=== PATIENT | male | born 1985 | race African-American/Black ===

== ENCOUNTER 2023-08-03 09:40 | Emergency (ER) | payer OTHER ==
[~2023-08-03] VITALS: Ht 180.3 cm; Wt 104.3 kg
[2023-08-03] MEDS ORDERED: IPRATROPIUM NEB FS 0.5 MG/2.5 ML AMPUL.NEB NEB ONE (10:00)
[2023-08-03] MEDS ORDERED: ALBUTEROL FS 2.5 MG/3 ML VIAL.NEB CONTNEB ONE (10:00)
[2023-08-03] MEDS ORDERED: methylPREDNISolone SOD SUCC 125 MG/2ML VIAL IV ONE (10:00)
[2023-08-03] MEDS ORDERED: EPINEPHRINE (1:1000) 1 MG/ML AMPUL SUBCUT ONE (10:00)
[2023-08-03] MEDS ORDERED: ALBUTEROL FS 2.5 MG/3 ML VIAL.NEB ONE (10:09)
[2023-08-03] MEDS ORDERED: EPINEPHRINE (1:1000) 1 MG/ML AMPUL ONE (10:09)
[2023-08-03] MEDS ORDERED: IPRATROPIUM NEB FS 0.5 MG/2.5 ML AMPUL.NEB ONE (10:09)
[2023-08-03] MEDS ORDERED: methylPREDNISolone SOD SUCC 125 MG/2ML VIAL ONE (10:09)
[2023-08-03 10:13] VITALS: O2SAT 96
[2023-08-03 10:34] VITALS: O2SAT 100
[2023-08-03] MEDS ORDERED: ALBU8.5H8 INH (11:34)
[2023-08-03] MEDS ORDERED: PRED50TA PO (11:34)
[2023-08-03 12:02] VITALS: BP 107/60; TEMP 98.7; O2SAT 96
== END 2023-08-03 12:23 | disposition home or self-care (01) ==
LOC: ER 09:47
DX: J45.901 Unspecified asthma with (acute) exacerbation (principal)
CPT/HCPCS: 99285; 96374; 93005; 94640; 96372; J0171; J2930